=== PATIENT | male | born 1965 | race African-American/Black ===

== ENCOUNTER 2019-12-25 03:51 | Emergency (ER) | payer MEDICAID ==
[~2019-12-25] VITALS: Ht 190.5 cm; Wt 100.0 kg
[2019-12-25] MEDS ORDERED: ONDANSETRON HCL 4MG/2ML INJ IV STA (05:28)
[2019-12-25] MEDS ORDERED: SODIUM CHLORIDE 0.9% 1,000 ML IV ONE (05:28)
[2019-12-25] MEDS ORDERED: LEVETIRACETAM 500MG PREMIX 100 ML IV ONE (05:30)
[2019-12-25 06:31] LABS: CHLORIDE 108 mEq/L (98-107)
[2019-12-25 06:34] LABS: BASOPHILS % 0.2 % (0.0-2.0); EOSINOPHILS % 0.6 % (0.0-5.0); HEMATOCRIT. 41.7 % (42.0-52.0); HEMOGLOBIN. 13.7 g/dL (14.0-18.0); LYMPHOCYTES % 19.3 % (20.0-50.0); MEAN CORPUSCULAR HEMOGLOBIN 31.8 pg (28.0-32.0); MEAN PLATELET VOLUME 8.5 fl (7.4-10.4); MONOCYTES % 8.3 % (2.0-8.0); NEUTROPHILS % 71.6 % (40.0-76.0); PLATELET 145 x1000/uL (130-400); RED CELL DISTRIBUTION WIDTH 14.9 % (11.6-14.6)
[2019-12-25 06:36] LABS: ETHANOL BLOOD < 10 mg/dL
[2019-12-25] MEDS ORDERED: LORAZEPAM 2MG/ML CPJ IV ONE (06:45)
[2019-12-25 08:04] LABS: VALPROIC ACID <3.0 ug/mL ug/mL (50-100)
[2019-12-25 08:15] LABS: CARBAMAZEPINE < 0.5 ug/mL (4-12); PHENOBARBITAL < 2.1 ug/mL (15.0-40.0)
[2019-12-25 14:39] VITALS: BP 131/72
== END 2019-12-25 14:43 | disposition home or self-care (01) ==
LOC: ER 04:17
DX: R56.9 Unspecified convulsions (principal); E87.6 Hypokalemia; Z98.890 Other specified postprocedural states
CPT/HCPCS: 36415; 70450; 71045; 80053; 80156; 80165; 80184; 80185; 80320; 82962; 84484; 85025; 93005; 96365; 96375; 99284; J1953; J2060; J2405; J7030; Z7610; G0480

== ENCOUNTER 2020-04-04 05:59 | Emergency (ER) | payer MEDICAID ==
[~2020-04-04] VITALS: Ht 182.9 cm; Wt 91.0 kg
[2020-04-04] MEDS ORDERED: LORAZEPAM 2MG/ML CPJ ONE (06:30)
[2020-04-04] MEDS ORDERED: LEVETIRACETAM 1000MG/100ML 100 ML IV ONE (06:30)
[2020-04-04 06:34] LABS: BASOPHILS % 0.3 % (0.0-2.0); EOSINOPHILS % 2.2 % (0.0-5.0); HEMATOCRIT. 45.3 % (42.0-52.0); HEMOGLOBIN. 15.1 g/dL (14.0-18.0); LYMPHOCYTES % 44.3 % (20.0-50.0); MEAN CORPUSCULAR HEMOGLOBIN 32.3 pg (28.0-32.0); MEAN CORPUSCULAR VOLUME 96.9 fL (80.0-94.0); MEAN PLATELET VOLUME 9.2 fl (7.4-10.4); MONOCYTES % 8.4 % (2.0-8.0); NEUTROPHILS % 44.8 % (40.0-76.0); PLATELET 109 x1000/uL (130-400); RED BLOOD CELL COUNT 4.67 mill/uL (4.7-6.1); RED CELL DISTRIBUTION WIDTH 13.8 % (11.6-14.6)
[2020-04-04 06:41] LABS: CHLORIDE 106 mEq/L (98-107)
[2020-04-04 06:45] LABS: ETHANOL BLOOD < 10 mg/dL
[2020-04-04] MEDS ORDERED: LORAZEPAM 2MG/ML CPJ IV ONE (06:45)
[2020-04-04 07:07] LABS: CLARITY URINE CLOUDY (CLEAR); COLOR URINE YELLOW (YELLOW); KETONES URINE TRACE (NEGATIVE); LEUKOCYTE ESTERASE URINE NEGATIVE (NEGATIVE); NITRITE URINE NEGATIVE (NEGATIVE); OCCULT BLOOD URINE NEGATIVE (NEGATIVE); PROTEIN URINE 1+ (NEGATIVE); SPECIFIC GRAVITY URINE 1.022 (1.005-1.030); UROBILINOGEN URINE 0.2 E.U./dL (0.2-1.0)
[2020-04-04] MEDS ORDERED: SODIUM CHLORIDE 0.9% 1,000 ML IV ONE (07:09)
[2020-04-04 07:32] LABS: *AMPHETAMINES SCREEN URINE NEGATIVE (NEGATIVE); *BARBITURATES SCREEN URINE NEGATIVE (NEGATIVE); *BENZODIAZEPINES SCREEN URINE NEGATIVE (NEGATIVE)
[2020-04-04 07:33] LABS: *COCAINE SCREEN URINE NEGATIVE (NEGATIVE); CANNABINOID URINE SCREEN PRESUMTIVE POSITIVE (NEGATIVE); METHADONE URINE SCREEN NEGATIVE (NEGATIVE); OPIATES URINE SCREEN NEGATIVE (NEGATIVE); PHENCYCLIDINE URINE SCREEN NEGATIVE (NEGATIVE)
[2020-04-04] MEDS ORDERED: CEFTRIAXONE 1 G PREMIX 50 ML IV SCH (08:00)
[2020-04-04 10:09] VITALS: BP 125/85
== END 2020-04-04 10:12 | disposition home or self-care (01) ==
LOC: ER 05:59
DX: G40.909 Epilepsy, unspecified, not intractable, without status epilepticus (principal); I10 Essential (primary) hypertension
CPT/HCPCS: 36415; 80053; 80305; 80320; 81003; 82962; 85025; 96365; 96375; 99285; J0696; J1953; J2060; G0480